=== PATIENT | female | born 1970 | race Caucasian/White ===

== ENCOUNTER 2018-12-11 22:46 | Emergency (ER) | payer BC ==
[2018-12-11] MEDS ORDERED: Ketorolac Tromethamine 30 MG/ML VIAL ONE (23:25)
[2018-12-11 23:27] LABS: #Basophils 0.1 thou/uL (0.0-0.2); #Eosinphils 0.1 thou/uL (0.0-0.7); #Lymphocytes 4.1 thou/uL (1.20-3.40); #Monocytes 0.8 thou/uL (0.11-0.59); #Neutrophils 5.9 thou/uL (1.40-6.50); %Eosinophils 1.1 % (0.0-10.0); %Lymphocytes 37.4 % (21.0-51.0); %Monocytes 6.8 % (0.0-10.0); %Neutrophils 53.7 % (42.0-75.0); Hemoglobin 14.4 g/dL (12.0-16.0); Mean Corpuscular HGB CONC 34.9 g/dL (32.0-36.0); Mean Corpuscular Hemoglobin 32.3 pg (27.0-31.0); Mean Corpuscular Volume 92.7 fL (78.0-98.0); Mean Platelet Volume 6.1 fL (7.4-10.4); Platelet Count 251 thou/uL (130-400); RBC Distribution Width 11.4 % (11.5-14.5); Red Blood Cell (RBC) Count 4.46 mill/uL (4.20-5.40); White Blood Cell (WBC) Count 10.9 thou/uL (4.8-10.8)
[2018-12-11 23:33] LABS: BHCG - Serum Negative (NEGATIVE); Pregs Control Background? CLEAR/WHITE (CLR/WHITE); Pregs Control Bar Appear? YES (CONTROL BAR)
[2018-12-11 23:41] LABS: ALT (SGPT) 14 U/L (8-55); AST (SGOT) 12 U/L (5-34); Albumin 4.4 g/dL (3.5-5.0); Alkaline Phosphatase 72 U/L (40-150); Anion Gap 13 mmol/L (10-20); BUN (Urea Nitrogen) 17 mg/dL (7.0-18.7); Bilirubin, Total 0.3 mg/dL (0.2-1.2); CK (CPK) 34 U/L (29-168); Calc. Creatinine Clearance 0 mL/min (70-130); Calcium 10.5 mg/dL (7.8-10.44); Carbon Dioxide 29 mmol/L (22-29); Chloride 103 mmol/L (98-107); Estimated GFR-MDRD 62; Globulin 3.9 g/dL (2.4-3.5); Glucose 98 mg/dL (70-105); Lipase 53 U/L (8-78); Potassium 3.8 mmol/L (3.5-5.1); Protein, Total 8.3 g/dL (6.0-8.3); Sodium 141 mmol/L (136-145)
--- NOTE | 2018-12-12 00:04 | ULT ---
RIGHT UPPER QUADRANT ULTRASOUND: 12/11/18 COMPARISON: None. HISTORY: Abdominal pain. TECHNIQUE: Multiplanar borja scale sonographic imaging of the right upper quadrant provided. FINDINGS: The pancreas is obscured by bowel gas. The hepatic parenchyma is heterogeneous and echogenic suggesting steatosis. The common bile duct measures 3 mm, within normal limits. No pericholecystic fluid or gallbladder wall thickening is seen. However, there are echogenic stones within the gallbladder lumen. There is also sludge within the gallbladder lumen. The adobe cq developer repo rts a positive Posey's sign. Right kidney measures 10.4 cm craniocaudal dimension and demonstrates no stone, hydronephrosis or mas s. The lower pole of the right kidney is obscured by bowel gas. IMPRESSION: Stones and sludge within the gallbladder. The adobe cq developer reports a positive Posey's sign. This comb ination of findings may signify acute cholecystitis in the proper clinical setting. If further imagin g assessment is clinically warranted, hepatobiliary scan may be beneficial. POS: OFF
== END 2018-12-12 01:45 | disposition home or self-care (01) ==
LOC: SCSER 22:46
DX: K80.20 Calculus of gallbladder without cholecystitis without obstruction (principal)
CPT/HCPCS: 76705; 80053; 82550; 83690; 84484; 84703; 85025; 93005; 96361; 96374; J1885

== ENCOUNTER 2018-12-18 16:04 | Outpatient (CLI) | payer BC ==
[2018-12-18 16:28] VITALS: BMI 38.7
--- NOTE | 2018-12-18 16:59 | HP ---
HISTORY OF PRESENT ILLNESS: Tesha Banda is a 48-year-old female with symptomatic gallstone. She has pain and tenderness in right upper quadrant. She presented to the emergency room, had laboratories and a gallbladder ultrasound noting gallstones, positive sonographic Posey sign, normal bile duct caliber with a normal CBC and comprehensive metabolic profile. She is seen today with ongoing pain. She has had episodic right upper quadrant pain and nausea for some time. She is on phentermine for weight reduction. She is beginning with ketogenic diet. ALLERGIES: NONE. TOBACCO: None. ALCOHOL: Socially. MEDICATIONS: 1. Vitamin D3. 2. Escitalopram. 3. Phentermine. 4. . ALLERGIES: NONE. PAST SURGICAL HISTORY: Left ankle surgery, C-sections. SOCIAL HISTORY: The patient is operations administrative assistant. REVIEW OF SYSTEMS: Noncontributory. FAMILY HISTORY: Noncontributory. PHYSICAL EXAMINATION: VITAL SIGNS: Weight 104 kg, blood pressure 110/72, heart rate 68, respiratory rate 18, temperature 98.4 degrees. HEAD, EYES, EARS, NOSE, AND THROAT: Unremarkable. LUNGS: Clear to auscultation. CARDIAC: Regular rate rhythm. No murmur or gallop. ABDOMEN: Soft. Tenderness in right upper quadrant. Mild guarding. EXTREMITIES: Unremarkable. ASSESSMENT: Acute cholecystitis, cholelithiasis. PLAN: Recommend laparoscopic video cholecystectomy. Risks of infection, bleeding, visceral and biliary injury open procedure, transfusion discussed, questions answered. Job ID: [id number]
--- NOTE | 2018-12-19 16:24 | EKG ---
Test Reason : Blood Pressure : / mmHG Vent. Rate : 066 BPM Atrial Rate : 066 BPM P-R Int : 184 ms QRS Dur : 082 ms QT Int : 400 ms P-R-T Axes : 037 005 013 degrees QTc Int : 419 ms Normal sinus rhythm Normal ECG No previous ECGs available Confirmed by YAJAIRA REYNOLDS, DR. Portillo ([id number]) on 12/19/2018 4:23:56 PM Referred By: ZITA Confirmed By:DR. Lindsey GATES MD
== END 2018-12-18 16:05 | disposition home or self-care (01) ==
LOC: LABBT 16:04
PROVIDERS: ATTEND Specialist
DX: Z01.810 Encounter for preprocedural cardiovascular examination (principal); K80.20 Calculus of gallbladder without cholecystitis without obstruction
CPT/HCPCS: 93005; 93010

== ENCOUNTER 2018-12-26 11:49 | Day surgery (SDC) | payer BC ==
--- NOTE | 2018-12-18 16:59 | HP ---
HISTORY OF PRESENT ILLNESS: Tesha Banda is a 48-year-old female with symptomatic gallstone. She has pain and tenderness in right upper quadrant. She presented to the emergency room, had laboratories and a gallbladder ultrasound noting gallstones, positive sonographic Posey sign, normal bile duct caliber with a normal CBC and comprehensive metabolic profile. She is seen today with ongoing pain. She has had episodic right upper quadrant pain and nausea for some time. She is on phentermine for weight reduction. She is beginning with ketogenic diet. ALLERGIES: NONE. TOBACCO: None. ALCOHOL: Socially. MEDICATIONS: 1. Vitamin D3. 2. Escitalopram. 3. Phentermine. 4. . ALLERGIES: NONE. PAST SURGICAL HISTORY: Left ankle surgery, C-sections. SOCIAL HISTORY: The patient is field administrative assistant. REVIEW OF SYSTEMS: Noncontributory. FAMILY HISTORY: Noncontributory. PHYSICAL EXAMINATION: VITAL SIGNS: Weight 104 kg, blood pressure 110/72, heart rate 68, respiratory rate 18, temperature 98.4 degrees. HEAD, EYES, EARS, NOSE, AND THROAT: Unremarkable. LUNGS: Clear to auscultation. CARDIAC: Regular rate rhythm. No murmur or gallop. ABDOMEN: Soft. Tenderness in right upper quadrant. Mild guarding. EXTREMITIES: Unremarkable. ASSESSMENT: Acute cholecystitis, cholelithiasis. PLAN: Recommend laparoscopic video cholecystectomy. Risks of infection, bleeding, visceral and biliary injury open procedure, transfusion discussed, questions answered. Job ID: [id number]
[2018-12-26] MEDS ORDERED: Scopolamine 1.5 mg/72 hour Patch ONE (12:05)
[2018-12-26] MEDS ORDERED: Ketorolac Tromethamine 30 MG/ML VIAL ONE (12:05)
[2018-12-26] MEDS ORDERED: Levofloxacin 500 mg/D5W 100 ml Premix Bag ONE (12:05)
[2018-12-26] MEDS ORDERED: Bupivacaine HCl 0.5%/Epinephrine 1:200,000/PF 30 ml Vial ONE (14:28)
[2018-12-26] MEDS ORDERED: Fentanyl 100 MCG/2 ML VIAL ONE ×4 (14:33→16:28)
[2018-12-26] MEDS ORDERED: HYDROmorphone 2 MG/ML VIAL ONE (14:59)
[2018-12-26] MEDS ORDERED: SUGAMMADEX SODIUM 500 MG/5 ML VIAL ONE (15:36)
[2018-12-26] MEDS ORDERED: Ondansetron ODT 4 MG TAB ONE (16:57)
[2018-12-26] MEDS ORDERED: traMADol HCl 50 MG TAB ONE (17:15)
--- NOTE | 2018-12-26 20:38 | OP ---
DATE OF PROCEDURE: 12/26/2018 PREOPERATIVE DIAGNOSES: Chronic cholecystitis and cholelithiasis. POSTOPERATIVE DIAGNOSES: Chronic cholecystitis and cholelithiasis. PROCEDURE PERFORMED: Laparoscopic video cholecystectomy. ANESTHESIA: General, local 0.5% Marcaine with epinephrine, 30 mL total volume used. DESCRIPTION OF PROCEDURE: The patient was taken to the operating room. Under general anesthesia, in the supine position, abdomen was prepared with ChloraPrep and draped in routine fashion. She was placed in reverse Trendelenburg. Local anesthetic was infiltrated in the skin and subcutaneous tissue about all port site. Infraumbilical incision was made, pneumoperitoneum to 15 mmHg obtained with a Veress needle, replaced with a 5 port, video laparoscope inserted. Right subxiphoid incision was made and 11 port placed, right subcostal incision was made at midclavicular entrance line, the 5 port was placed. The fundus of the gallbladder was grasped at the cephalad, infundibulum grasped and reflected laterally. Cystic artery and duct were dissected free. Critical view obtained. Cystic artery and duct double clipped proximally, divided gallbladder, dissected free from liver bed obtaining good hemostasis prior to division of the final peritoneal attachments. Gallbladder and contents removed, submitted to Pathology. Good hemostasis assured with cautery. Irrigant and pneumoperitoneum evacuated. All instruments were removed. All skin incisions were approximated with interrupted subdermal 4-0 Monocryl and [place] glue applied. Job ID: [id number]
== END 2018-12-26 17:45 | disposition home or self-care (01) ==
LOC: SDC 11:49
PROVIDERS: ATTEND Specialist
PROC: 0FT44ZZ Resection of Gallbladder, Percutaneous Endoscopic Approach (ICD-10-PCS; principal; 2018-12-26)
DX: K80.12 Calculus of gallbladder with acute and chronic cholecystitis without obstruction (principal); Z79.899 Other long term (current) drug therapy
CPT/HCPCS: 88304; J0131; J0670; J1170; J1885; J1956; J3010; Q0162

== ENCOUNTER 2019-12-02 10:50 | Outpatient (CLI) | payer BC ==
--- NOTE | 2019-12-02 13:50 | MMO ---
Bilateral MAMMO Bilat Screen [facility]. CLINICAL HISTORY: Patient is 49 years old and is seen for screening. The patient has no family history of breast cancer. The patient has no personal history of cancer. VIEWS: The views performed were: bilateral craniocaudal with tomosynthesis and bilateral mediolateral oblique with tomosynthesis. FILMS COMPARED: The present examination has been compared to prior imaging studies performed at [facility] on 11/04/2013, 11/09/2014 and 11/15/2016. This study has been interpreted with the assistance of computer-aided detection. MAMMOGRAM FINDINGS: There are scattered fibroglandular densities. There are no suspicious masses, suspicious calcifications, or new areas of architectural distortion. IMPRESSION: THERE IS NO MAMMOGRAPHIC EVIDENCE OF MALIGNANCY. A ROUTINE FOLLOW-UP MAMMOGRAM IN 1 YEAR IS RECOMMENDED. THE RESULTS OF THIS EXAM WERE SENT TO THE PATIENT. ACR BI-RADS Category 1 - Negative MAMMOGRAPHY NOTE: 1. A negative mammogram report should not delay a biopsy if a dominant of clinically suspicious mass is present. 2. Approximately 10% to 15% of breast cancers are not detected by mammography. 3. Adenosis and dense breasts may obscure an underlying neoplasm. Reported by: LONI GARDINER MD Electonically Signed: [id number]
== END 2019-12-02 10:51 | disposition home or self-care (01) ==
LOC: BICMAMMO 10:50
PROVIDERS: ATTEND Family Medicine
DX: Z12.31 Encounter for screening mammogram for malignant neoplasm of breast (principal)
CPT/HCPCS: 77063; 77067

== ENCOUNTER 2022-08-15 13:28 | Outpatient (CLI) | payer BC | END 2022-08-15 13:29 | disposition home or self-care (01) | LOC: DTY/OP 13:28 | PROVIDERS: ATTEND Surgery | DX: E66.01 Morbid (severe) obesity due to excess calories (principal) | CPT/HCPCS: 97802 ==